=== PATIENT | female | born 1970 | race African-American/Black ===

== ENCOUNTER → 2021-07-11 17:14 | Outpatient (CLI) | payer OTHER, SELFPAY ==
[2021-07-11 18:03] LABS: Add Manual Diff / Slide Review NO; Basophils Absolute Auto 0 /uL (0-100); Basophils Percent Auto 1.1 % (0-2); Eosinophils Absolute Auto 100 /uL (0-450); Eosinophils Percent Auto 1.6 % (2-4); Hematocrit 35.7 % (36-46); Hemoglobin 11.8 g/dL (12.0-16.0); Lymphocytes Absolute Auto 1600 /uL (1100-4500); Lymphocytes Percent Auto 47.6 % (25-40); Mean Corpuscular HGB Conc 33.1 % (30-36); Mean Corpuscular Hemoglobin 30.7 PG (26-34); Mean Corpuscular Volume 92.6 fL (80-100); Monocytes Absolute Auto 300 /uL (0-900); Monocytes Percent Auto 8.8 % (3-14); Neutrophils Absolute Auto 1400 /uL (1500-7000); Neutrophils Percent Auto 40.9 % (50-75); Platelet Count 292 X10^3/uL (150-400); Red Blood Cell Count 3.86 X10^6/uL (4.0-5.2); Red Cell Distribution Width 13.6 % (11.6-14.8); White Blood Cell Count 3.3 X10^3/uL (4.5-11.0)
== END ==
PROVIDERS: PCP Specialist; Referring Provider Specialist; Visit Provider Specialist
DX: N92.4 Excessive bleeding in the premenopausal period (principal)
CPT/HCPCS: 36415; 85025

== ENCOUNTER → 2021-12-31 15:03 | Outpatient (CLI) | payer OTHER, SELFPAY ==
[2021-12-31 16:29] LABS: COVID19 -Nasal RAPID Negative (Negative)
== END ==
PROVIDERS: PCP Specialist; Visit Provider Obstetrics & Gynecology
DX: Z01.812 Encounter for preprocedural laboratory examination (principal); Z20.822 Contact with and (suspected) exposure to COVID-19
CPT/HCPCS: 87635

== ENCOUNTER 2022-01-01 12:33 | Day surgery (SDC) | payer OTHER, SELFPAY ==
[2021-12-21 10:08] VITALS: BMI 24.1
[2022-01-01] VITALS (11 sets, daily range): BP systolic 106–139; BP diastolic 76–91; PULSE 65–90; RESP 10–97; TEMP 36.2–37.3; O2SAT 12–100; BMI 23.8
--- NOTE | 2022-01-01 | PATH_ITS ---
[facility] Accession Number: [id number] . 01 Material submitted: . uterus - UTERUS . 02 Diagnosis: A. Uterus, Supracervical Hysterectomy: Myometrium with adenomyosis and multiple leiomyomas (up to 4 cm). Late secretory phase endometrium. No evidence of endometrioid intraepithelial neoplasia or malignancy. MRV 01/04/2022 1323 Local . 02 Electronically signed: . Yanira Stevens MD, Pathologist NPI- [id number] . 01 Gross description: . The specimen is received in formalin, labeled with the patient's name and uterus, is composed of a previously opened distorted uterus. It is difficult to reconstruct the specimen. The specimen measures 13.0 x 9.0 x 5.0 cm and weighs 186.0 grams. Possible endometrial cavity is identified which measures 2.0 cm by 0.9 cm. It is red-brow and hemorrhagic. The uterus is distorted by multiple zarco-white whorled nodules which are firm and range in size from 4.0 x 2.5 x 1.5 cm to 1.0 x 1.0 x 0.4 cm. An area of zarco-white to zarco-yellow smooth region is identified which either represent endometrium or represents the serosal surface, and it measures 4.5 x 4.0 cm. It is smooth. Fallopian tube and cervix are not identified. Sectioning reveals more smaller zarco-white circumscribed nodules measuring 0.5 x 0.5 cm. [employer] sections are submitted as follows: . A1-A3. Possible endomyometrium. A4-A5. Light zarco-brown surface either showing serosa or endometrium with underlying 0.5 cm leiomyoma. A6-A8: [employer] sections of leiomyomata. ([id number]) /MRV 01/02/2022 [facility] . 02 Pathologist provided ICD-10: D25.9 . 02 CPT . 647580 Specimen Comment: A courtesy copy of this report has been sent to [phone] Performed at: 01 [facility] [address] [id number] MD Griffin Escobedo MD Phone: [phone] Performed at: 02 [facility] [address] [place] [id number] MD Kira Galvan MD Phone: [phone]
--- NOTE | 2022-01-01 13:14 | PM.PREOP ---
Pre-operative Note COVID-19 COVID-19 status: Negative Result date/Date tested (Pos, Neg/Pending): 12/31/21 Criteria for continued procedure: Delay expected to result in less-positive ultimate med/surg outcome Interval Note History & Physical reviewed/Exam performed by Physician: Yes Changes to H&P: No
[2022-01-01] MEDS: LACTATED RINGERS 1,000 ML 100 ML IV ×2 (13:22→16:46)
--- NOTE | 2022-01-01 13:31 | P.HPOB_ITS ---
History of Present Illness History of Present Illness Reason for admission: vaginal bleeding Narrative: Lizzette Guillen is a 51 year old female for hysterectomy for menorrhagia and large uterine fibroids [facility] Medical History (Updated 01/01/22 @ 13:04 by Melisa Hubbard RN) Allergies (~1977) Anemia (~1992) Asthma (~1977) Chicken pox (~1985) Constipation Depression (~1997) Eczema (~1974) Heavy menstrual period (~2017) Irregular menstrual cycle (~2017) Ovarian cyst (~1994) Shoulder pain (~1997) Surgical History (Updated 10/03/21 @ 20:45 by Monique Garcia) Anesthesia History of knee surgery (~03/2008) History of salpingectomy (~2015) History of salpingo-oophorectomy (~1994) Family History (Updated 10/03/21 @ 21:18 by Monique Garcia) Father Prostate cancer Diabetes mellitus Hypertension Mother Diabetes mellitus Hypertension Grandfather Diabetes mellitus Grandmother Hypertension Stroke Grandfather Stroke Grandmother Hypertension Stroke Social History household members: spouse Smoking Status: Never smoker alcohol intake: never Meds Home Medications and Allergies Home Medications Medication Instructions Recorded Confirmed Type ascorbic acid (vitamin C) 1,500 mg 1,600 tab PO DAILY 01/01/22 01/01/22 History tablet cholecalciferol (vitamin D3) 125 125 mcg PO DAILY 01/01/22 01/01/22 History mcg (5,000 unit) tablet (Vitamin D3) Allergies Allergy/AdvReac Type Severity Reaction Status Date / Time chlorzoxazone Allergy Severe Anaphylaxis Verified 01/01/22 13:04 [From Daniela Elena [facility]] Penicillins Allergy Intermediate rash Verified 01/01/22 13:04 Review of Systems Review of Systems Narrative: Patient denies headaches. No chest pains or shortness of breath. No fevers or chills. No unusual pain. Patient continues to have excessive vaginal bleeding Exam Vital Signs (past 8 hours): - 01/01/22 13:08 Temperature 97.9 F Pulse Rate 68 Respiratory Rate 16 Blood Pressure 130/91 H Pulse Oximetry 100 Oxygen Delivery Method Room Air Narrative Exam Narrative: Preoperative diagnosis: Menorrhagia, uterine fibroids, pelvic pain Planned procedure:? Laparoscopic supracervical hysterectomy History of present illness:?Patient is a 50-year-old para 3, vaginal deliveries, who for the past year has been having intermittent pelvic pain that has been getting worse.? It is suprapubic.? She has had irregular menses with no bleeding between December in April and then starting bleeding again.? Periods have been getting quite heavy.??She did not have any improvement of her bleeding with Provera and was having more bloating so did not continue to take. Ultrasound showed uterus measuring 6.91 x 4.27 x 5.36 cm not including the large pedunculated fibroid.? She has a 2.97 cm by 2.9 cm intramural possible submucosal fibroid on the anterior fundal part of the uterus.? She has a posterior are somewhat pedunculated fibroid measuring 5.74 x 3.96 x 7.52 cm.? Both of these fibroids have grown in 3 months.? Patient is requesting hysterectomy.? Patient has a history of having both fallopian tubes and 1 ovary removed. On physical exam: HEENT exam within normal limits.? Lungs are clear to auscultation and percussion.? Heart is regular rate and rhythm no S3-S4 murmurs.? Abdomen is soft, nontender with uterus palpated to half ways to umbilicus.? Pelvic exam not repeated. Exam on 11/28/2021 normal external genitalia, vagina, cervix.? Uterus is enlarged and somewhat irregular contour.? Adnexal masses not appreciated.? Extremities without edema and nontender. Consent form reviewed with the patient including risk of needing to open the abdomen to perform the surgery, damage to internal structures such as bowel, bladder, ureters.? Reaction to medication or anesthesia.? Minimal risk of infection.? Possible need for blood transfusion.? Possible onset of menopause despite leaving her ovary in place.? Possible scar tissue that could cause long- term issues with pain. Assessment & Plan Assessment and plan (1) Perimenopausal menorrhagia: Status: Acute (2) Submucous uterine fibroid: Status: Acute (3) Fibroid, uterine: Problem details: 7 x 5 x 4 cm on 07/05/2021 subserosal posterior Qualifiers: Uterine leiomyoma location: subserous Qualified Code(s): D25.2 - Subserosal leiomyoma of uterus Status: Acute Assessment & Plan narrative: Menorrhagia with submucous fibroids and large subserosal fibroid for laparoscopic supracervical hysterectomy COVID-19 COVID-19 status: Negative Result date/Date tested (Pos, Neg/Pending): 12/31/21 Time Spent With Patient Time with patient: less than 30 minutes Critical Care time: I spent a total of [] minutes of critical care time on this patient's care today; this time is exclusive of procedural time.
[2022-01-01] MEDS: CEFAZOLIN 2 GM/20 ML SYRINGE IV (13:55)
--- NOTE | 2022-01-01 14:17 | SUR.OPER ---
Lithotomy on padded OR bed. [place] Pad Positioner under torso. Head on pillow, arms padded and tucked at sides. Legs secured in padded yellow fins stirrups.
[2022-01-01] MEDS: ROPIVACAINE 0.2% PF 2 MG/ML 10ML AMP 20 ML INJ (15:00)
--- NOTE | 2022-01-01 15:12 | PM.OP.1 ---
Operative Date/Time/Diagnoses Date of procedure: 01/01/22 Time of procedure: 15:12 Pre-op diagnosis: Menorrhagia with submucous fibroid and large subserosal fibroid Post-op diagnosis: same Procedure & Clinicians Procedure: Laparoscopic supracervical hysterectomy Same procedure as scheduled: Yes Indications: Menorrhagia from submucous fibroid and large subserosal fibroid Surgeon: Martha Kinney [employer]: Raphael Dickson Click Yes if Unassisted: No Anesthesia Type: General Operative Notes Findings: Status post right salpingo oophorectomy and left salpingectomy. Normal appearing left ovary. Small areas of peritoneal endometriosis. Enlarged uterus with large posterior are lower uterine segment subserosal fibroid. Normal bowel surface. Liver with several obvious benign-appearing cystic structures. No scar tissue, no internal hernias. Closure Type: primary Specimen(s): other (Uterus above the level of bladder leaving cervix) Applied: catheter (Damon removed at the end of the case) Estimated Blood Loss (mL): 25 Blood products transfused: none Procedure in detail: Patient is brought to the operating room where she underwent general anesthesia and placed in [facility]. She was prepped and draped in the usual sterile fashion. A check list was reviewed with the staff in the room prior to beginning of the case. Patient had pulsatile stockings in place and functional. 2 g of Ancef were in prior to beginning of the case.. A Damon catheter was placed. A single-tooth tenaculum was placed on the anterior lip of the cervix and the cervix dilated to a #6 Hegar dilator. The V cup uterine manipulator was placed through the cervix into the uterus with the balloon inflated with 3 mL of air. The area of the umbilical incision and the 5 mm right and left lower quadrant incisions were injected with Marcaine with epi. An incision was made with scalpel. The verries needle was placed into the abdomen and confirmed in the appropriate place with withdrawal on a syringe and then free flow of fluid down through the needle. The abdomen was insufflated with CO2. The needle was removed and a 5 mm trocar placed without difficulty. There did not appear to be any damage is placement of the trocar. The right and left lower quadrant incisions were made with the scalpel and the trochars placed without damage to internal structures. The PK forceps were used to cauterize the left utero-ovarian ligament. Sequential bites were taken along the broad ligaments. The uterine arteries were cauterized. An incision was made above the level bladder pushing the bladder away from the cervix. The ANNETTE loop was placed around the uterus and the uterus was amputated above the level of the bladder. Bleeding was controlled with the PK forceps. The PK forceps were used to cauterize in the endocervical canal. A supracervical incision was made and an 11 mm port placed. A 15 mm Endo Catch bag was placed in the abdomen. The uterus was placed in the bag and brought up through the suprapubic port site. The Rafa O was placed. The uterus was hand morselized. The abdomen was reinsufflated and adequate hemostasis was noted. The trochars were removed and the CO2 allowed escape from the abdomen. The fascia layer of the suprapubic site was repaired with 0 Polysorb suture. Skin was closed with 4-0 Monocryl suture at the suprapubic site and the other 3 sites. The patient went to recovery room in good condition. Counts of instruments and sponges were correct. Dr. Dickson was present throughout the case to assist with holding the camera, retracting, cauterizing and cutting the structures on the left side of the patient, as well as assisting with morselization of the uterus. Complications: none Post-operative Condition: stable Disposition: observation Plan for aftercare: Patient is hoping to be discharged today.
[2022-01-01] MEDS: BUPIVACAINE 0.5% (PF) 30 ML, EPINEPHrine 0.15 MG INJ (15:34)
--- NOTE | 2022-01-01 15:39 | SUR.PHASEI ---
Received to PACU after general anesthesia. Airway patent, self maintained. Report from Dr Wong and NEIL George.
[2022-01-01] MEDS: OXYCODONE IR 5 MG TABLET PO (16:05)
--- NOTE | 2022-01-01 16:39 | SUR.PHASEI ---
PACU discharge criteria met. Report called to NEIL Lima. Transferred to room 204 with belongings bag x1. Received in room by NEIL Lima.
--- NOTE | 2022-01-01 17:23 | PC.NURSE ---
Addendum entered by Clarence Mtz R.N. 01/01/22 17:27: Patient tolerating water. Up with standby assistance to bathroom and voided clear yellow urine without difficulty. Dressing remain intact. Patient is eager to leave tonight, Dr. Kinney notified. Original Note: Patient received from PACU, VSS, oriented to room and call light. States pain is tolerable at a 3/10. 4 lap sites to abdomen/pelvis with band aids are CDI. Sylvia pad in place, dry.
--- NOTE | 2022-01-01 17:28 | PM.DS.1 ---
History of Present Illness History of Present Illness Date Patient Seen: 01/01/22 Time Patient Seen: 17:28 Chief complaint: OPB Narrative: Patient underwent a laparoscopic supracervical hysterectomy on 01/01/2022. She was monitored postoperative and was urinating well, pain under control, tolerating diet and requesting discharge. Discharge Providers Provider Discharge Date: 01/01/22 Primary care physician: Wilfrido Evangelista DO Discharge provider: Martha Kinney MD Summary Hospital Course Discharge Diagnosis: Menorrhagia with uterine fibroids Hospital Course: Patient underwent a laparoscopic supracervical hysterectomy. She is requesting discharge as she is not nauseated, tolerating diet, urinating and ambulating. Status at Discharge Cognitive/behavioral status at discharge: oriented Functional status at discharge: independent ambulation Overall status at discharge: patient is progressing back to baseline Time Spent with Patient Time spent: Less than 30 minutes Exam Vital Signs (past 8 hours): - 01/01/22 13:08 01/01/22 15:21 01/01/22 15:26 Temperature 97.9 F 97.2 F L Pulse Rate 68 90 68 Respiratory Rate 16 12 10 L Blood Pressure 130/91 H 119/76 106/78 Pulse Oximetry 100 97 97 01/01/22 15:31 01/01/22 15:36 01/01/22 15:51 Temperature 97.1 F L Pulse Rate 76 74 67 Respiratory Rate 14 12 97 H Blood Pressure 126/78 133/84 128/81 Pulse Oximetry 100 100 12 L 01/01/22 16:06 01/01/22 16:21 01/01/22 16:40 Temperature 98.2 F 99.1 F Pulse Rate 65 74 72 Respiratory Rate 10 L 12 14 Blood Pressure 120/83 126/79 126/83 Pulse Oximetry 99 100 100 Oxygen Delivery Method Room Air Narrative Exam Narrative: Abdomen is soft, nontender. Dressing was are clean, dry, intact. No significant vaginal bleeding. Extremities without edema and nontender. [facility] Medical History (Updated 01/01/22 @ 13:04 by Melisa Hubbard RN) Allergies (~1977) Anemia (~1992) Asthma (~1977) Chicken pox (~1985) Constipation Depression (~1997) Eczema (~1974) Heavy menstrual period (~2017) Irregular menstrual cycle (~2017) Ovarian cyst (~1994) Shoulder pain (~1997) Surgical History (Updated 01/01/22 @ 15:25 by Martha Kinney MD) Anesthesia History of knee surgery (~03/2008) History of salpingectomy (~2015) History of salpingo-oophorectomy (~1994) Family History (Updated 10/03/21 @ 21:18 by Monique Garcia) Father Prostate cancer Diabetes mellitus Hypertension Mother Diabetes mellitus Hypertension Grandfather Diabetes mellitus Grandmother Hypertension Stroke Grandfather Stroke Grandmother Hypertension Stroke Social History household members: spouse Smoking Status: Never smoker alcohol intake: never Discharge Assessment & Plan Assessment and Plan Assessment: Status post laparoscopic supracervical hysterectomy for menorrhagia doing well Plan of Treatment: Patient is discharged home to be followed up in 1 week. Patient declined any pain medicine prescription. Routine precautions reviewed. Discharge Plan Discharge Plan Patient Disposition: Home Discharge orders & Medications Discharge Orders: Discharge (Order); Ordered 01/01/22 Ordered By: Martha Kinney Prescriptions: Continued ascorbic acid (vitamin C) 1,500 mg Tablet 1,600 tab PO DAILY 0RF cholecalciferol (vitamin D3) [Vitamin D3] 125 mcg (5,000 unit) Tablet 125 mcg PO DAILY 0RF Follow up/Referrals: Martha Kinney MD [Physician] - 1 Week Wilfrido Evangelista, [Primary Care Provider] - Diet/Activity/Treatments Diet: Regular Activity: no restrictions Skin/Wound/Dressing Care Report to your healthcare provider any signs of infection, such as:: chills, fever, increased pain and unusual redness Dressing: remove bandaids tomorrow, leave steristrips in place, can get wet just pat dry Visit Report/Discharge Packet Instructions: DI for Hysterectomy, DI for Laparoscopy Stand Alone Forms: Surgery Discharge Discharge Data Primary Care Provider: Wilfrido Evangelista Attending Provider: Martha Kinney Quality VTE Deep Vein Thrombosis/Pulmonary Embolism Present on Admission: No
[2022-01-01] MEDS: KETOROLAC 30 MG/ML VIAL IV (17:35)
--- NOTE | 2022-01-01 18:46 | PC.NURSE ---
Discharge order received, discharge instructions and home care handouts reviewed with patient and her , they state understanding and have no further questions or concerns at this time. IV removed intact. Patient will schedule follow up with Dr. Kinney. Escorted out via wheelchair by SELENE to be discharged to home with her .
== END 2022-01-01 18:50 | disposition home or self-care (01) ==
LOC: OR 12:39 → AC 13:40
PROVIDERS: PCP Student in an Organized Health Care Education/Training Program; Referring Provider Specialist; Visit Provider Specialist
PROC: 0UT94ZL Resection of Uterus, Supracervical, Percutaneous Endoscopic Approach (ICD-10-PCS; CPT 58541; principal; 2022-01-01 13:30)
DX: D25.0 Submucous leiomyoma of uterus (principal); D25.2 Subserosal leiomyoma of uterus; N80.0 Endometriosis of uterus
CPT/HCPCS: 58541; J0171; J0690; J1885; J2250; J2704; J2795; J3010